=== PATIENT | male | born 1950 | race African-American/Black ===

== ENCOUNTER 2020-12-09 09:50 | Outpatient (CLI) | payer MEDICARE, MEDICAID ==
[2020-12-09 10:57] LABS: Hemoglobin 12.2 g/dL (13.5-17.5)
[2020-12-09 11:22] LABS: Anion Gap 20 mmol/L (10-20); BUN (Urea Nitrogen) 9 mg/dL (8.4-25.7); Calc. Creatinine Clearance 0 mL/min (70-130); Calcium 8.1 mg/dL (7.8-10.44); Carbon Dioxide 26 mmol/L (23-31); Chloride 96 mmol/L (98-107); Glucose 104 mg/dL (80-115); Potassium 3.3 mmol/L (3.5-5.1); Sodium 139 mmol/L (136-145)
[2020-12-09 16:44] LABS: SARS-CoV-2 PCR by NAA Not Detected (NotDetected)
== END 2020-12-09 09:51 | disposition home or self-care (01) ==
LOC: CSHLAB 09:50
PROVIDERS: ATTEND Otolaryngology Otolaryngic Allergy
DX: Z01.818 Encounter for other preprocedural examination (principal); Z20.822 Contact with and (suspected) exposure to COVID-19; D38.0 Neoplasm of uncertain behavior of larynx; R07.0 Pain in throat; C05.1 Malignant neoplasm of soft palate; R94.31 Abnormal electrocardiogram [ECG] [EKG]
CPT/HCPCS: 80048; 85014; 85018; 87635; 93005; 93010; U0003; U0005